=== PATIENT | male | born 2000 | race Caucasian/White ===

== ENCOUNTER 2020-08-12 16:53 | Outpatient (REF) | payer OTHER, SELFPAY | END 2020-08-12 16:54 | disposition home or self-care (01) | LOC: HO.LAB 16:53 | PROVIDERS: Visit Provider Internal Medicine | DX: Z20.822 Contact with and (suspected) exposure to COVID-19 (principal) | CPT/HCPCS: 36415; C9803; U0003; U0005 ==

== ENCOUNTER 2020-12-26 21:32 | Emergency (ER) | payer OTHER, SELFPAY ==
--- NOTE | ~2020-12-26 | XR_ITS ---
EXAMINATION: XR FOOT, RIGHT CLINICAL INFORMATION: Concern for fracture. COMPARISON: No priors. TECHNIQUE: AP, lateral, and oblique views of the right foot. FINDINGS: No fracture. Anterior calcaneal process is intact. Joint spaces are approximated with normal alignment. There is normal midfoot alignment. Bone density is preserved. No lytic or blastic osseous lesions. There is prominent soft tissue swelling in the dorsal medial mid foot. No underlying fracture. No soft tissue gas. No soft tissue calcification. No ankle joint effusion. No radiopaque foreign body. XR/XR foot RT 2V IMPRESSION: Right foot: Dorsal medial midfoot soft tissue swelling without underlying fracture. No joint effusion. No soft tissue gas. No radiopaque foreign body.
[2020-12-26 21:38] VITALS: BP 140/75; PULSE 92; RESP 16; TEMP 36.6; O2SAT 96; BMI 34.3
--- NOTE | 2020-12-26 22:31 | ED_ITS ---
HPI - Extremity Injury (Lower) General Chief Complaint: Extremity Injury, Lower Stated Complaint: foot inj Time Seen by Provider: 12/26/20 22:31 Source: patient Mode of arrival: ambulatory Limitations: no limitations History of Present Illness HPI Narrative: was working in his car and small ranch less than 5 lb fell onto the dorsum of the foot. complaint: foot injury Onset (ago): minute(s) Injury: Right: foot Type of Injury: blunt Place: home Severity: mild Exacerbating factors: palpation Context: direct blow Other symptoms: none Treatments prior to arrival: cold therapy Related Data Previous Rx's Medication Instructions Recorded divalproex 500 mg tablet,delayed 500 mg PO Q12H #180 tab 11/18/20 release fluoxetine 40 mg capsule 40 mg PO DAILY #90 cap 11/18/20 omeprazole 20 mg capsule,delayed 20 mg PO DAILY #30 cap 11/18/20 release Allergies Allergy/AdvReac Type Severity Reaction Status Date / Time No Known Allergies Allergy Verified 04/04/20 08:48 [No Known Allergies*] Review of Systems Review of Systems: Constitutional: No Weight loss, No Fever, No Chills, No Night Sweats, No Fatigue, No Malaise ENT/Mouth: No Hearing loss, No Ear Pain, No Nasal Congestion, No Sinus Pain, No Hoarseness, No sore throat, No Rhinorrhea, No Swallowing Difficulty Eyes: No Eye Pain, No Swelling, No Redness, No Foreign Body, No Discharge, No Vi chastity Changes Cardiovascular: No Chest Pain, No SOB, No Dyspnea on Exertion, No Orthopnea, No Edema, No Palpitations Respiratory: No Cough, No Sputum, No Wheezing, No Smoke Exposure, No Dyspnea Gastrointestinal: No Nausea, No Vomiting, No Diarrhea, No Constipation, No abdominal Pain, No Hematochezia, No Melena Musculoskeletal: No joint pain, No Myalgias, No Joint Swelling , as noted per HPI Skin: No Skin Lesions, No rash Neuro: No Weakness, No Numbness, No Paresthesias, No Loss of Consciousness, No Dizziness, No Headache Psych: No Social Issues Heme/Lymph: No Bruising, No Bleeding,No Lymphadenopathy Endocrine: No Polyuria, No Polydipsia, No Temperature Intolerance Yes all other systems are reviewed and are negative [facility] Past Medical History Medical History (Updated 12/26/20 @ 22:33 by Tejinder Adams NP) Anger Depression GERD (gastroesophageal reflux disease) Surgical History (Updated 04/04/20 @ 08:48 by SOHAM Hicks) No pertinent past surgical history Family History Family History (Updated 04/04/20 @ 08:50 by SOHAM Hicks) Father No problems noted. Mother No problems noted. Social History Social History (Updated 05/04/20 @ 16:47 by SOHAM Marquez) Alcohol intake: unknown Patient Tobacco Use Status: Tobacco use Unknown Use of substances other than those prescribed or required for medical reasons: Unknown Physical Exam Vital Signs: Vital Signs: Last Vital Signs Temp 97.9 F 12/26/20 21:38 Pulse 92 12/26/20 21:38 Resp 16 12/26/20 21:38 BP 140/75 H 12/26/20 21:38 Pulse Ox 96 12/26/20 21:38 Body Mass Index 34.3 reviewed Const: General: cooperative and healthy appearing; No acute distress or intoxicated appearing Nutritional Appearance: average body habitus Orientation/consciousness: patient oriented x3 Resp: Effort & Inspection: normal respiratory effort Cardio: Jugular venous distension: no JVD : General: Yes no CVA tenderness Back/Spine/Pelvis: Back: no CVA tenderness Skin: General skin exam: no rashes or lesions noted Neuro: General: patient oriented x3 Extrem: General: Yes normal to inspection Ankle/foot/toe images: 1. slightly swelling with mild ecchymosis. Slight tender to palpation. Otherwise full range of motion, pulses within normal limits, cap refill within normal limits. MDM - Extremity Injury (Lower) Medical Records Attestation: I reviewed the patient's medical records. Imaging Data Foot x-ray: Radiologist's impression: [address] [id number] ReportSigned Patient: Ziggy Lakhani#: [id number]: 09/02Acct:[id number]/Sex: 20 / MADM Date: 12/26/20Loc: HO.EDAttending Dr: Ordering Physician: Generic ED Physician Date of Service: 12/26/20 Procedure(s): XR foot RT 2V Accession Number(s): [id number] cc: Generic ED Physician~ EXAMINATION: XR FOOT, RIGHT CLINICAL INFORMATION: Concern for fracture. COMPARISON: No priors. TECHNIQUE: AP, lateral, and oblique views of the right foot. FINDINGS: No fracture. Anterior calcaneal process is intact. Joint spaces are approximated with normal alignment. There is normal midfoot alignment. Bone density is preserved. No lytic or blastic osseous lesions. There is prominent soft tissue swelling in the dorsal medial mid foot. No underlying fracture. No soft tissue gas. No soft tissue calcification. No ankle joint effusion. No radiopaque foreign body. XR/XR foot RT 2V IMPRESSION: Right foot: Dorsal medial midfoot soft tissue swelling without underlying fracture. No joint effusion. No soft tissue gas. No radiopaque foreign body. Dictated By:Neena Wagner MDSigned By:<Electronically signed by Neena Wagner MD in [place]>12/26/202206 DD/ 48TD/TT: Underwriting Clerk: Discharge Plan Discharge Clinical Impression: Contusion of foot Qualifiers: Encounter type: initial encounter Laterality: right Qualified Code(s): S90.31XA - Contusion of right foot, initial encounter Patient Disposition: Home, Self-Care Instructions: Foot Contusion (ED) Additional Instructions: rest, ice, compress, elevate x-ray did not show any evidence of fracture Supportive cares discussed Return if any concerns or worsening symptoms otherwise follow-up as instructed Thank you Prescriptions: No Action divalproex 500 mg tablet,delayed release (DR/EC) 500 mg PO Q12H Qty: 180 RF: 0 fluoxetine 40 mg capsule 40 mg PO DAILY Qty: 90 RF: 0 omeprazole 20 mg capsule,delayed release(DR/EC) 20 mg PO DAILY Qty: 30 RF: 0 Referrals: ED Physician,Generic [Physician] - 1 week
== END 2020-12-26 23:05 | disposition home or self-care (01) ==
LOC: HO.ED 22:46
PROVIDERS: Emergency Provider Internal Medicine
DX: S90.31XA Contusion of right foot, initial encounter (principal); W20.8XXA Other cause of strike by thrown, projected or falling object, initial encounter; Y93.89 Activity, other specified; Y92.9 Unspecified place or not applicable; Y99.9 Unspecified external cause status
CPT/HCPCS: 73620; 99283; 99284

== ENCOUNTER 2021-02-19 16:30 | Emergency (ER) | payer OTHER, SELFPAY ==
--- NOTE | ~2021-02-19 | XR_ITS ---
EXAMINATION: XR LUMBOSACRAL SPINE CLINICAL INFORMATION: Back pain COMPARISON: None TECHNIQUE: 4 views of lumbar spine FINDINGS: The vertebral bodies and posterior elements are normal. The disc spaces are preserved and the vertebral alignment is normal. The paraspinal soft tissues are normal. XR/XR lumbar spine 2-3V IMPRESSION: Unremarkable examination.
[2021-02-19 16:43] VITALS: PULSE 80; RESP 18; TEMP 36.6; O2SAT 98; BMI 34.9
[2021-02-19 17:07] LABS: MANUAL DIFF FLAG NO
[2021-02-19 17:32] LABS: Anion Gap 12 (12-20); Blood Urea Nitrogen 14 mg/dL (9-16); Calcium 9.9 mg/dL (8.4-10.2); Carbon Dioxide 27 mmol/L (22-29); Chloride 104 mmol/L (96-108); Estimated Glomerular Filt Rate > 60; Glucose Random 69 mg/dL (60-115); Potassium 4.1 mmol/L (3.3-5.1); Sodium 139 mmol/L (135-145)
[2021-02-19 17:36] LABS: Basophils Percent Auto 0.1 % (0-2); Eosinophils Absolute Auto 0.2 X10*3/uL (0.0-0.4); Eosinophils Percent Auto 2.7 % (0-4); Hematocrit 40.6 % (42-52); Hemoglobin 13.1 g/dl (14.0-18.0); Imm Gran Abs Auto 0.02 X10*3/uL (0.00-0.03); Imm Gran Pct Auto 0.3 % (0.0-0.4); Lymphocytes Absolute Auto 2.1 X10*3/uL (1.2-4.9); Lymphocytes Percent Auto 29.5 % (20-40); Mean Corpuscular HGB Conc 32.3 g/dl (31.0-36.0); Mean Corpuscular Hemoglobin 27.3 pg (27.0-33.0); Mean Corpuscular Volume 84.6 fL (80-98); Mean Platelet Volume 11.8 fL (9.4-12.4); Monocytes Absolute Auto 0.4 X10*3/uL (0.1-1.2); Monocytes Percent Auto 5.3 % (2-11); Neutrophils Absolute Auto 4.3 X10*3/uL (2.0-8.3); Neutrophils Percent Auto 62.1 % (45-73); Platelet Count 232 X10*3/uL (160-400); Red Cell Distribution Width 12.6 % (11.0-16.0)
[2021-02-19 20:53] VITALS: BP 126/81; PULSE 71; RESP 16; TEMP 36.4; O2SAT 99
--- NOTE | 2021-02-19 21:43 | ED.BACK ---
HPI - Back Pain/Injury General Chief Complaint: Headache Stated Complaint: lower back pain Time Seen by Provider: 02/19/21 21:43 Source: patient Mode of arrival: ambulatory Limitations: no limitations History of Present Illness HPI Narrative: patient with lumbar pain after lifting, this afternoon patient had pain. Has not been seen by a doctor, no dysuria no hematuria. 2 weeks ago patient had a headache that made him nauseated. MD elicited complaint: back pain Pertinent past history: prior back pain Onset (ago): hour(s) Timing: intermittent Severity: mild Location: lumbar spine Exacerbating factors: lifting Context: while lifting Associated symptoms: denies other symptoms Related Data Previous Rx's Medication Instructions Recorded divalproex 500 mg tablet,delayed 500 mg PO Q12H #180 tab 11/18/20 release fluoxetine 40 mg capsule 40 mg PO DAILY #90 cap 11/18/20 omeprazole 20 mg capsule,delayed 20 mg PO DAILY #30 cap 11/18/20 release cyclobenzaprine 10 mg tablet 10 mg PO TID #10 tab 02/19/21 naproxen 500 mg tablet (Naprosyn) 500 mg PO BID #20 tab 02/19/21 Allergies Allergy/AdvReac Type Severity Reaction Status Date / Time No Known Allergies Allergy Verified 04/04/20 08:48 [No Known Allergies*] Review of Systems Constitutional: Constitutional: Reports no additional constitutional complaints Eyes: Eyes: Reports no additional eye complaints ENT: Denies dizziness Cardiovascular: Cardiovascular: Reports no additional cardiovascular complaints Respiratory: Respiratory: Reports as per HPI Gastrointestinal: Gastrointestinal: Reports no additional gastrointestinal complaints Musculoskeletal: Musculoskeletal: Reports no additional musculoskeletal complaints Integumentary/Breasts: Skin/Breast: Denies rash Neurologic: Reports system reviewed and no additional complaints, except as documented, Denies dizziness and Denies Sensory deficit (Neuro) Psychiatric: Psychiatric: Denies anxiety PMFSH Past Medical History Medical History Anger Depression GERD (gastroesophageal reflux disease) Surgical History No pertinent past surgical history Family History Family History Father No problems noted. Mother No problems noted. Social History Social History Alcohol intake: never Patient Tobacco Use Status: Never used Tobacco Use of substances other than those prescribed or required for medical reasons: No Advance Directives: Yes Advance Directives Information Provided: Yes Advance Directives on File: No Physical Exam Vital Signs: Vital Signs: Last Vital Signs Temp 98.2 F 02/19/21 22:35 Pulse 57 02/19/21 22:35 Resp 16 02/19/21 22:35 BP 120/77 02/19/21 22:35 Pulse Ox 98 02/19/21 22:35 Body Mass Index 34.9 Const: General: healthy appearing Nutritional Appearance: obese Orientation/consciousness: oriented to person and patient oriented x3 Limitations: no limitations HENMT: Head: Yes normal to inspection Ears: external ears normal General nose exam: Normal external nose present Mouth: Normal oral and palatal mucosa present and oropharynx normal Throat: Yes posterior oropharynx normal Eyes: General: appearance normal, both eyes and all related structures Neck: Other: supple Neck: Yes normal visual inspection Chest: Chest palpation & inspection: normal inspection of the chest Resp: Auscultation: clear to auscultation bilaterally Cardio: Jugular venous distension: no JVD Rate: regular rate Rhythm: regular rhythm Heart sounds: S1 normal heart sound present and S2 normal heart sound present GI: Inspection: Yes normal to inspection Palpation (GI): Soft to palpation, nontender and No hepatosplenomegaly present Auscultation: normal bowel sounds Back/Spine/Pelvis: Other: mild SI joint tenderness FROM Skin: General skin exam: no rashes or lesions noted Neuro: General: oriented to person and patient oriented x3 Cranial nerves: Yes CN's II-XII intact bilaterally Motor exam (neuro): 5/5 motor strength present throughout Sensory Exam: No Sensory deficit (Neuro) Extrem: General: Yes normal to inspection Psych: Appearance: grossly normal Course Reevaluation(s) Reevaluation #1: patient with lumbar pain and radiculopathy improved with medication will dc on NSAIDs and flexeril Time: 23:17 MDM - Back Pain/Injury Lab Data Result diagrams: 02/19/21 17:00 02/19/21 17:00 Labs: Lab Results 02/19/21 02/19/21 Range/Units 17:00 17:00 WBC 7.0 (4.8-10.8) X10*3/uL RBC 4.80 (4.60-5.80) X10*6/uL Hgb 13.1 L (14.0-18.0) g/dl Hct 40.6 L (42-52) % MCV 84.6 (80-98) fL MCH 27.3 (27.0-33.0) pg MCHC 32.3 (31.0-36.0) g/dl RDW 12.6 (11.0-16.0) % Plt Count 232 (160-400) X10*3/uL MPV 11.8 (9.4-12.4) fL Immature Gran % (Auto) 0.3 (0.0-0.4) % Neut % (Auto) 62.1 (45-73) % Lymph % (Auto) 29.5 (20-40) % [place] % (Auto) 5.3 (2-11) % Eos % (Auto) 2.7 (0-4) % Baso % (Auto) 0.1 (0-2) % Lymph # (Auto) 2.1 (1.2-4.9) X10*3/uL [place] # (Auto) 0.4 (0.1-1.2) X10*3/uL Eos # (Auto) 0.2 (0.0-0.4) X10*3/uL Baso # (Auto) 0.0 (0.0-0.2) X10*3/uL Abs Immat Gran (auto) 0.02 (0.00-0.03) X10*3/uL Absolute Neuts (auto) 4.3 (2.0-8.3) X10*3/uL Absolute Nucleated RBC 0.000 (0.0-0.012) X10*3/uL Nucleated RBC % (auto) 0.0 (0.0-0.2) /100WBC Sodium 139 (135-145) mmol/L Potassium 4.1 (3.3-5.1) mmol/L Chloride 104 (96-108) mmol/L Carbon Dioxide 27 (22-29) mmol/L Anion Gap 12 (12-20) BUN 14 (9-16) mg/dL Creatinine 0.88 (0.5-1.4) mg/dL Estim Creat Clear Calc 189.0 Estimated GFR > 60 Random Glucose 69 (60-115) mg/dL Calcium 9.9 (8.4-10.2) mg/dL Imaging Data lumbar xray: Radiologist's impression: IMPRESSION: Unremarkable examination. Discharge Plan Discharge Clinical Impression: Lumbar back pain Patient Disposition: Home, Self-Care Instructions: Acute Low Back Pain (ED) Prescriptions: New cyclobenzaprine 10 mg tablet 10 mg PO TID Qty: 10 RF: 0 naproxen [Naprosyn] 500 mg tablet 500 mg PO BID Qty: 20 RF: 0 No Action divalproex 500 mg tablet,delayed release (DR/EC) 500 mg PO Q12H Qty: 180 RF: 0 fluoxetine 40 mg capsule 40 mg PO DAILY Qty: 90 RF: 0 omeprazole 20 mg capsule,delayed release(DR/EC) 20 mg PO DAILY Qty: 30 RF: 0 Referrals: Physician,Unknown [Primary Care Provider] - 5 days
[2021-02-19 22:00] VITALS: BP 159/91; PULSE 70; RESP 16; O2SAT 100
[2021-02-19] MEDS: Cyclobenzaprine HCl 10 MG TABLET PO (22:02)
[2021-02-19] MEDS: Ketorolac Tromethamine 60 MG/2 ML VIAL IM (22:02)
[2021-02-19 22:35] VITALS: BP 120/77; PULSE 57; RESP 16; TEMP 36.8; O2SAT 98
[2021-02-19 23:02] VITALS: BP 134/72; PULSE 70; RESP 16
== END 2021-02-19 23:30 | disposition home or self-care (01) ==
PROVIDERS: Emergency Provider Emergency Medicine
DX: M54.5 Low back pain (principal)
CPT/HCPCS: 36415; 72100; 80048; 85025; 96372; 99284; J1885

== ENCOUNTER 2021-06-18 13:03 | Outpatient (REF) | payer OTHER, SELFPAY ==
[2021-06-18 15:19] LABS: COVID-19 Test Negative (Negative)
== END 2021-06-18 13:04 | disposition home or self-care (01) ==
LOC: HO.LAB 13:03
PROVIDERS: Visit Provider Internal Medicine
DX: Z20.822 Contact with and (suspected) exposure to COVID-19 (principal)
CPT/HCPCS: 36415; 87635; C9803

== ENCOUNTER 2021-07-27 12:10 | Emergency (ER) | payer OTHER, SELFPAY ==
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
[2021-07-27 13:06] VITALS: BP 142/87; PULSE 100; RESP 19; TEMP 36.6; O2SAT 99; BMI 36.2
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
== END 2021-07-27 14:12 | disposition home or self-care (01) ==
PROVIDERS: Emergency Provider Emergency Medicine
DX: S29.011A Strain of muscle and tendon of front wall of thorax, initial encounter (principal); S39.012A Strain of muscle, fascia and tendon of lower back, initial encounter; V43.52XA Car driver injured in collision with other type car in traffic accident, initial encounter; Y93.9 Activity, unspecified; Y92.410 Unspecified street and highway as the place of occurrence of the external cause; Y99.9 Unspecified external cause status; Z79.899 Other long term (current) drug therapy
CPT/HCPCS: 71046; 99283

== ENCOUNTER 2021-09-11 10:56 | Emergency (ER) | payer OTHER, SELFPAY ==
--- NOTE | ~2021-09-11 | CT_ITS ---
EXAMINATION: CT ABDOMEN AND PELVIS WITHOUT CONTRAST CLINICAL INFORMATION: Right lower quadrant pain COMPARISON: None TECHNIQUE: Multidetector volumetric imaging was performed from the superior aspect of the liver through the pubic symphysis. Sagittal and coronal reformatted images were obtained on the technologist's workstation. This CT examination was performed using dose optimization techniques as appropriate, variously including the following: *Automated exposure control *Adjustment of mA and/or kV according to patient size (this includes techniques or standardized protocols for targeted exams where dose is matched to indication/reason for exam; i.e. extremities or head) *Use of iterative reconstruction technique DLP: 1348 mGy-cm FINDINGS: LUNG BASES: The visualized lung bases are unremarkable. LIVER, GALLBLADDER, AND BILIARY TREE: The liver is normal in size, shape, and attenuation. No focal hepatic lesion or biliary ductal dilatation is present. The gallbladder is unremarkable with no evidence of radiopaque gallstones, gallbladder wall thickening, or obvious pericholecystic inflammatory changes. PANCREAS: Unremarkable. SPLEEN: Unremarkable. ADRENAL GLANDS: Unremarkable. KIDNEYS AND URETERS: The kidneys are normal in size, shape, and attenuation. No hydronephrosis, hydroureter, or calculi seen. No perinephric stranding. BLADDER: Unremarkable. GASTROINTESTINAL TRACT: The small and large bowel are unremarkable. The appendix is unremarkable. ABDOMINAL WALL: No significant hernia is appreciated. LYMPH NODES: There are numerous mesenteric lymph nodes with diffuse mesenteric haziness suggestive of mesenteric adenitis. VASCULAR: Unremarkable. PELVIC VISCERA: Unremarkable. OSSEOUS STRUCTURES: Unremarkable. CT/CT abdomen pelvis wo con IMPRESSION: Central mesenteric adenitis in midabdomen of unknown etiology. Gallbladder, kidneys and appendix are unremarkable. Rest of the abdomen and pelvic CTs unremarkable. Fleischner guidelines were followed.
[2021-09-11 11:32] VITALS: BP 126/90; BP 137/77; PULSE 110; PULSE 116; RESP 17; TEMP 36.8; O2SAT 99; BMI 34.3
--- NOTE | 2021-09-11 12:21 | ED_ITS ---
HPI - Nausea/Vomiting/Diarrhea General Chief complaint: Nausea/Vomiting/Diarrhea Stated complaint: VOMITING SINCE 7AM Time Seen by Provider: 09/11/21 12:18 Source: patient, family (Mother) and EMS Mode of arrival: EMS Limitations: no limitations History of Present Illness HPI Narrative: 20 years old male came in for evaluation of abdominal pain and nausea, vomiting, and diarrhea. Symptoms all started 07:00 o'clock in the morning went to the bathroom had nonbloody watery diarrhea followed by upper abdominal pain the patient started to have nonbloody vomitus, patient ate steak sandwich last night at a restauran t, no other sick contact, no recent travel, no recent use of antibiotic, abdominal pain is constant wean and wax with vomiting and diarrhea felt like cramps, no pain aggravating or relieving factors. Patient declined any surgical history. No previous similar symptoms in the past. Patient declined past medical history. Related Data Previous Rx's Medication Instructions Recorded divalproex 250 mg tablet,delayed 250 mg PO Q12H #60 tab 09/02/21 release fluoxetine 40 mg capsule 40 mg PO DAILY #90 cap 09/02/21 ondansetron HCl 4 mg tablet 4 mg PO Q8H PRN 3 Days #10 tab 09/11/21 Allergies Allergy/AdvReac Type Severity Reaction Status Date / Time No Known Allergies Allergy Verified 09/02/21 09:26 [No Known Allergies*] Review of Systems Review of Systems: all other systems are reviewed and are negative Constitutional: Reports as per HPI and Reports no additional constitutional complaints Eyes: Reports as per HPI and Reports no additional eye complaints Reports system reviewed and no additional complaints, except as documented Cardiovascular: Reports as per HPI and Reports no additional cardiovascular complaints Respiratory: Reports as per HPI and Reports no additional respiratory complaints Gastrointestinal: Reports as per HPI and Reports no additional gastrointestinal complaints Genitourinary: Reports no additional female genitourinary complaints Musculoskeletal: Reports no additional musculoskeletal complaints Skin/Breast: Reports system reviewed and no additional complaints, except as docu Psychiatric: Reports no additional psychiatric complaints Endocrine: Reports no additional endocrine complaints Hematologic/Lymphatic: Reports no additional hematologic/lymphatic complaints Allergic/Immunologic: Reports no additional allergic/immunologic complaints Reports system reviewed and no additional complaints, except as documented and Reports Abnormal speech present [facility] Past Medical History Medical History Anger Depression GERD (gastroesophageal reflux disease) Surgical History No pertinent past surgical history Family History Family History Father No problems noted. Mother No problems noted. 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 Blood pressure normal. Heart rate elevated. Respiration rate normal. Temperature normal. Oxygen saturation normal. Appearance: Alert. Oriented X3. No acute distress. Head: Normal external exam. Normocephalic. Atraumatic. No Norton signs noted. No raccoon eyes noted Eyes: PERRLA. EOMI. Conjunctiva and sclera normal. Eyelids normal. ENT: TM's Normal. Pharynx normal. Uvula midline. Moist mucous membranes. No trismus noted. No drooling noted. No muffled voice noted. Neck: Normal inspection. Neck supple. FROM. No adenopathy. Thyroid Normal. No meningeal signs. No neck mass noted. CVS: Normal heart rate and rhythm. Heart sound normal. No murmurs noted. Pulses normal throughout. Respiratory: No respiratory distress. Painless inspiration. Breath sounds normal. No wheezes/rales/rhonchi noted. Chest nontender. No accessory muscle usage noted or decreased air movement noted. Abdomen: Soft, obese, diffuse abdominal tenderness with no guarding, no rebound tenderness, Bowel sounds normal in all 4 quadrants. No distention noted. No organomegaly noted. No visible injury noted. Back: No CVA tenderness. Full range of motion noted. Skin: Skin warm and dry. Normal skin color. Normal skin turgor. No rashes/lesions/lacerations noted. Extremities: No lower extremity edema. Extremities exhibit normal range of mot ion. Extremities nontender. Neuro: Oriented X 3. Cranial nerve exam: II-XII are grossly intact No motor deficit. No sensory deficit. Reflexes normal. Course Course Course Narrative: Assessment and plan. 20-year-old male came in with abdominal pain, nausea vomiting with diarrhea after eating a steak sandwich last night. CT is unremarkable for intra-abdominal pathology except diffuse mesenteric adenitis. Patient's symptoms has improved after IV fluids, able to tolerate p.o. intake with no nausea or vomiting. Reevaluation(s) Reevaluation #1: Patient was ready to be discharged patient started to have abdominal pain and had 1 time vomiting in the ED patient was given pain medication and antinausea medication then will discharge. Time: 15:47 MDM - Nausea/Vomiting/Diarrhea Lab Data Attestation: I reviewed the patient's lab results. Result diagrams: 09/11/21 12:38 09/11/21 12:38 Labs: Lab Results 09/11/21 09/11/21 09/11/21 Range/Units 12:38 12:38 14:01 WBC 7.4 (4.8-10.8) X10*3/uL RBC 5.39 (4.60-5.80) X10*6/uL Hgb 14.4 (14.0-18.0) g/dl Hct 45.3 (42.0-52.0) % MCV 84.0 (80.0-98.0) fL MCH 26.7 L (27.0-33.0) pg MCHC 31.8 (31.0-36.0) g/dl RDW 13.1 (11.0-16.0) % Plt Count 199 (160-400) X10*3/uL MPV 11.1 (9.4-12.4) fL Immature Gran % (Auto) 0.1 (0.0-0.4) % Neut % (Auto) 90.1 H (45-73) % Lymph % (Auto) 3.2 L (20-40) % Hubbard % (Auto) 5.8 (2-11) % Eos % (Auto) 0.7 (0-4) % Baso % (Auto) 0.1 (0-2) % Lymph # (Auto) 0.2 L (1.2-4.9) X10*3/uL Hubbard # (Auto) 0.4 (0.1-1.2) X10*3/uL Eos # (Auto) 0.1 (0.0-0.4) X10*3/uL Baso # (Auto) 0.0 (0.0-0.2) X10*3/uL Abs Immat Gran (auto) 0.01 (0.00-0.03) X10*3/uL Absolute Neuts (auto) 6.7 (2.0-8.3) x10*3/uL Absolute Nucleated RBC 0.000 (0.0-0.012) X10*3/uL Nucleated RBC % (auto) 0.0 (0.0-0.2) /100WBC Smear Tech's Comments VERIFIED Sodium 139 (135-145) mmol/L Potassium 4.4 (3.3-5.1) mmol/L Chloride 104 (96-108) mmol/L Carbon Dioxide 24 (22-29) mmol/L Anion Gap 15 (12-20) BUN 14 (9-16) mg/dL Creatinine 0.95 (0.5-1.4) mg/dL Estim Creat Clear Calc 173.5 Estimated GFR > 60 Random Glucose 119 H D (60-115) mg/dL Calcium 10.0 (8.4-10.2) mg/dL Total Bilirubin 0.6 (0.0-1.0) mg/dL Direct Bilirubin 0.3 (0.0-0.5) mg/dL AST 16 (5-37) U/L ALT 19 (0-40) U/L Alkaline Phosphatase 72 (39-117) U/L Total Protein 8.1 H (6.5-8.0) g/dL Albumin 4.5 (3.5-5.0) g/dL Lipase 12 (8-78) U/L Urine Color YELLOW Urine Appearance CLEAR Urine pH 7.5 (5.0-8.0) Ur Specific Naselle 1.015 (1.005-1.025) Urine Protein 1+ H (NEG-TRACE) MG/DL Urine Glucose (UA) NEG (NEG) MG/DL Urine Ketones 15 (NEG) MG/DL Urine Blood NEG (NEG) Urine Nitrite NEG (NEG) Ur Leukocyte Esterase NEG (NEG) Urine RBC 0 (0) /HPF Urine WBC 0-2 (0-4) /HPF Ur Squamous Epith Cells 1+ /LPF Urine Bacteria NONE /LPF Urine Mucus 1+ /LPF Imaging Data CT abdomen and pelvis: Attestation: I personally reviewed and interpreted this imaging study as follows: Radiologist's impression: Central mesenteric adenitis in midabdomen of unknown etiology. ?Gallbladder, kidneys and appendix are unremarkable. ?Rest of the abdomen and pelvic CTs unremarkable. ? Discharge Plan Discharge Clinical Impression: Gastroenteritis Patient Disposition: Home, Self-Care Instructions: Gastroenteritis (ED) Prescriptions: New ondansetron HCl 4 mg tablet 4 mg PO Q8H PRN (Reason: nausea and vomiting) 3 Days Qty: 10 0RF No Action fluoxetine 40 mg capsule 40 mg PO DAILY Qty: 90 0RF divalproex 250 mg tablet,delayed release (DR/EC) 250 mg PO Q12H Qty: 60 0RF
[2021-09-11] MEDS: ondansetron HCL 4 MG/2 ML VIAL IVPUSH ×2 (12:40→16:06)
[2021-09-11] MEDS: 0.9 % Sodium Chloride 1,000 ML 999 ML IV (12:40)
[2021-09-11] MEDS: Famotidine/PF 20 MG/2 ML VIAL IVPUSH (12:40)
[2021-09-11] MEDS: Magnesium Hydrox/Alum Hydrox 30 ML ORAL.SUSP PO (12:40)
[2021-09-11 12:45] VITALS: BP 122/81; PULSE 96; RESP 18; TEMP 36.8; O2SAT 100
--- NOTE | 2021-09-11 12:46 | PC.NURSE ---
pt a&ox3, vss, laboratory monitor applied - NSR, 20G IV placed R AC, labs drawn, flds started, medicated per provider order, will continue to monitor.
[2021-09-11 12:48] LABS: Basophils Percent Auto 0.1 % (0-2); Eosinophils Absolute Auto 0.1 X10*3/uL (0.0-0.4); Eosinophils Percent Auto 0.7 % (0-4); Hematocrit 45.3 % (42.0-52.0); Hemoglobin 14.4 g/dl (14.0-18.0); Imm Gran Abs Auto 0.01 X10*3/uL (0.00-0.03); Imm Gran Pct Auto 0.1 % (0.0-0.4); Lymphocytes Absolute Auto 0.2 X10*3/uL (1.2-4.9); Lymphocytes Percent Auto 3.2 % (20-40); MANUAL DIFF FLAG SCAN; Mean Corpuscular HGB Conc 31.8 g/dl (31.0-36.0); Mean Corpuscular Hemoglobin 26.7 pg (27.0-33.0); Mean Platelet Volume 11.1 fL (9.4-12.4); Monocytes Absolute Auto 0.4 X10*3/uL (0.1-1.2); Monocytes Percent Auto 5.8 % (2-11); Neutrophils Absolute Auto 6.7 x10*3/uL (2.0-8.3); Neutrophils Percent Auto 90.1 % (45-73); Platelet Count 199 X10*3/uL (160-400); Red Blood Count 5.39 X10*6/uL (4.60-5.80); Red Cell Distribution Width 13.1 % (11.0-16.0); SCAN SMEAR FLAG 1; White Blood Count 7.4 X10*3/uL (4.8-10.8)
[2021-09-11 13:01] LABS: Alanine Aminotransferase 19 U/L (0-40); Albumin Level 4.5 g/dL (3.5-5.0); Alkaline Phosphatase 72 U/L (39-117); Anion Gap 15 (12-20); Aspartate Amino Transferase 16 U/L (5-37); Bilirubin Direct 0.3 mg/dL (0.0-0.5); Bilirubin Total 0.6 mg/dL (0.0-1.0); Blood Urea Nitrogen 14 mg/dL (9-16); Carbon Dioxide 24 mmol/L (22-29); Chloride 104 mmol/L (96-108); Creatinine Clr Calc Pharmacy 173.5; Estimated Glomerular Filt Rate > 60; Glucose Random 119 mg/dL (60-115); Lipase 12 U/L (8-78); Potassium 4.4 mmol/L (3.3-5.1); Sodium 139 mmol/L (135-145); Total Protein 8.1 g/dL (6.5-8.0)
[2021-09-11 13:15] VITALS: BP 122/81; PULSE 101; RESP 17; TEMP 37.1; O2SAT 99
--- NOTE | 2021-09-11 13:16 | PC.NURSE ---
patient a&ox3, vss, desk monitor sinus tach, pt c/o 03/12 back pain, ivf continue to run slowly, will continue to monitor
[2021-09-11 13:26] LABS: SLIDE REVIEW VERIFIED
[2021-09-11 14:04] VITALS: BP 134/69; PULSE 108; RESP 18; O2SAT 99
[2021-09-11 14:09] LABS: Appearance Urine CLEAR; Color Urine YELLOW; Glucose Urine UA NEG (NEG); Leukocyte Esterase Urine NEG (NEG); Nitrite Urine NEG (NEG); PH 7.5 (5.0-8.0); Specific Gravity - Urine 1.015 (1.005-1.025); UACC Culture Trigger NO; Urine Blood NEG (NEG); Urine Ketones 15 MG/DL (NEG); Urine Protein 1+ MG/DL (NEG-TRACE)
[2021-09-11 14:31] LABS: RBC Urine 0 /HPF (0); Squamous Epithelial Cell Urine 1+ /LPF; WBC Urine 0-2 /HPF (0-4)
[2021-09-11 14:32] LABS: Mucus Urine 1+ /LPF
--- NOTE | 2021-09-11 15:00 | PC.NURSE ---
patients ivf continue to run slowly, pt reminded to keep arm straight, family at bedside
[2021-09-11 16:00] VITALS: BP 114/61; PULSE 99; RESP 18; TEMP 37; O2SAT 95
[2021-09-11] MEDS: Morphine Sulfate 2 MG/ML CARTRIDGE IVPUSH (16:06)
[2021-09-11] MEDS: Ketorolac Tromethamine 15 MG/ML VIAL IVPUSH (16:06)
--- NOTE | 2021-09-11 16:11 | PC.NURSE ---
patient a&ox3, family at bedside, pt medicated for 9/10 abd and back pain per order as well as for nausea, vss, will continue to monitor
== END 2021-09-11 17:47 | disposition home or self-care (01) ==
PROVIDERS: Emergency Provider Emergency Medicine
DX: K52.9 Noninfective gastroenteritis and colitis, unspecified (principal); R11.2 Nausea with vomiting, unspecified; K21.9 Gastro-esophageal reflux disease without esophagitis
CPT/HCPCS: 36415; 74176; 80048; 80076; 81001; 83690; 85025; 96361; 96374; 96375; 96376; 99284; J1885; J2270; J2405

== ENCOUNTER 2021-11-25 07:48 | Outpatient (REF) | payer OTHER, SELFPAY ==
[2021-11-25 08:32] LABS: COVID-19 Test Positive (Negative); IDNOW Serial# 16C4AD1C
== END 2021-11-25 07:49 | disposition home or self-care (01) ==
LOC: HO.LAB 07:48
PROVIDERS: Visit Provider Internal Medicine
DX: Z20.822 Contact with and (suspected) exposure to COVID-19 (principal)
CPT/HCPCS: 87635; C9803

== ENCOUNTER 2024-10-07 15:13 | Outpatient (AMB) | payer OTHER, SELFPAY ==
--- NOTE | 2024-10-07 15:17 | MHC.OFFWIV ---
Intake Vital Signs 10/07/24 15:18 Weight 360 lb BP 118/74 Blood Pressure Location Rt brachial Position Sitting Pulse 92 Pulse Source Pulse Oximeter Pulse Oximetry (%) 98 Oxygen Delivery Method Room Air Intake Visit Reasons: EP Pain in groin area Intake Note: Patient here for right testicle pain that started yesterday. Denies any injuries, swelling or redness. Patient Tobacco Use Status: Never used Tobacco Allergies No Known Allergies [No Known Allergies*] Allergy (Verified 10/07/24 15:19) Do you need a note to return to daycare/school/sports/work: No HPI HPI Comments History of Present Illness Details History of Present Illness - The patient is a 24-year-old male presenting with right lateral testicular tenderness with palpation which he rates as a 4/10. - The tenderness is worse with palpation and is not constant. - Reports onset of unusual right testicular pain the previous night. - No visible swelling, redness, warmth noted - Pain is exacerbated by pressure, such as crossing legs or during urination. - Denies fever, rash, abnormal discharge, or changes in urinary habits, no detection of blood in his urine. - Sexual inactivity reported for the last 3 months. - Absence of recent trauma or injury to the area. - He has not done anything to treat the tenderness. - Patient declined space engineer for exam Physical Exam General: Cooperative, healthy appearing, comfortable, no acute distress and well developed Orientation: Patient oriented x3 Limitations: No limitations Head: Normal to inspection Ears: Hearing grossly normal bilaterally Nose: Normal External nose present Face and sinus: Normal facial exam Eyes: Appearance normal, both eyes and all related structures Neck: Normal visual inspection and Yes full ROM Respiratory: Normal respiratory effort and able to speak in complete sentences. : see below Skin: No rashes or lesions noted Neuro: Patient oriented x3 Extremities: Normal to inspection COUNT INCLUDES THE [facility] Medical History Anger Depression GERD (gastroesophageal reflux disease) Surgical History No pertinent past surgical history Family History Father No problems noted. Mother No problems noted. 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 Cognitive needs: No Hearing needs: No Vision needs: Yes (glasses) Review of Systems Const All systems reviewed & are unremarkable except as noted in HPI and below Physical Exam Vital Signs: Last Vital Signs Pulse 92 10/07/24 15:18 BP 118/74 10/07/24 15:18 Pulse Ox 98 10/07/24 15:18 Oxygen Delivery Method Room Air 10/07/24 15:18 Male General Exam: Yes normal external exam Penis: normal penis and uncircumcised Scrotum: scrotum normal, no ecchymosis, not edematous, not erythematous, testes descended bilaterally, no masses and no scrotal swelling Testes: Testes normal, epididymides normal, no blue dot sign, no epidiymal tenderness, no testicular mass, no testicular swelling and testicular tenderness on the right (lateral) Assessment & Plan Assessment & Plan (1) Testicle tenderness: Code(s): N50.819 - Testicular pain, unspecified Plan: UA negative for infection or blood. Although testicular torsion was considered, it is unlikely given the lack of acute symptoms typically associated with torsion, such as severe pain or significant swelling. Patient was advised to monitor his symptoms with instructions to go to the ED with any escalation of symptoms, such as increased swelling or severe pain. In the meanwhile, I messaged his PCP for further workup. Patient was informed and verbally consented to the use of an ambient scribe for clinic note documentation during this visit. Coding Level of Care Code Est Pt Level 3 (02571) Diagnoses Testicle tenderness N50.819
[2024-10-07 15:18] VITALS: BP 118/74; PULSE 92; O2SAT 98
--- OUTSIDE RECORDS SUMMARY | 2024-10-07 18:02 | XMS_ITS | Encounter Summary ---
Author Organization [employer] Address [address] [place] [address] [address] [place] [address] Care Team Providers Care Technology Trainer Name Role Phone Liss Peterson OD Primary Care Provider Encounter Details Date Type Department Care Team (Latest Contact Info) Description 11/20/2018 Abstract [facility] CONVERSIONS Dental, Provider, DDS Social History Tobacco Use Types Packs/Day Years Used Date Smoking Tobacco: Never Assessed Sex and Gender Information Value Date Recorded Sex Assigned at Male 05/02/2022 10:34 AM EDT Legal Sex Male 10:34 AM EDT Gender Identity Male 05/02/2022 10:34 AM EDT Sexual Orientation Straight 05/02/2022 10 :34 AM EDT documented as of this encounter Plan of Treatment Not on file documented as of this encounter Visit Diagnoses Not on filedocumented in this encounter Care Teams Technology Trainer Relationship Specialty Start Date End Date Liss Peterson OD [address] [place] [id number] PCP - General Optometry 02/28/18 07/09/23 documented as of this encounter
--- OUTSIDE RECORDS SUMMARY | 2024-10-07 18:02 | XMS_ITS | Encounter Summary ---
Author Organization [email or web address] Address [address] [place] [address] 7 [place] [address] Care Team Providers Care Meat Packager Name Role Phone Liss Peterson OD Primary Care Provider [phone] Encounter Details Date Type Department Care Team (Latest Contact Info) Description 12/21/2021 Abstract [facility] CONVERSIONS Dental, Provider, DDS Social History [...] on filedocumented in this encounter Care Teams Meat Packager Relationship Specialty Start Date End Date Liss Peterson OD [address] [place] [id number] PCP - General Optometry 02/28/18 07/09/23 documented as of this encounter
--- OUTSIDE RECORDS SUMMARY | 2024-10-07 18:02 | XMS_ITS | Clinical Summary ---
Author Organization [employer] Address [address] [place] [address] [address] [place] [address] Care Team Providers Care Armature Coil Winder Name Role Phone Unavailable Primary Care Provider Unavailabl e Allergies Active Allergy Reactions Criticality Noted Date Comments Penicillins 09/19/2023 Medications divalproex (Depakote) 500 MG EC tablet Take 1 tablet by mouth every 12 (twelve) hours. Active FLUoxetine (PROzac) 40 MG capsule Take 40 mg by mouth in the morning. 04/16/2023 Active Social History Tobacco Use Types Packs/Day Years Used Date Smoking Tobacco: Unknown Tobacco Cessation:Counseling Given: Not Answered Sex and Gender Information Value Date Recorded Sex Assigned at Male 05/02/2022 10:34 AM EDT Legal Sex Male 10:34 AM EDT Gender Identity Male 05/02/2022 10:34 AM EDT Sexual Orientation Straight 05/02/2022 10 :34 AM EDT Last Filed Vital Signs Vital Sign Reading Time Taken Comments Blood Pressure 130/80 12/19/2023 3:27 PM EDT Pulse - - Temperature - - Respiratory Rate - - Oxygen Saturation - - Inhaled Oxygen Concentration - - Weight - - Height - - Body Mass Index - - Plan of Treatment Health Maintenance Due Date Last Done Comments Depression Screening 1998 HIV Screening 1998 SDOH Screening 1998 Alcohol/Substance Use Screening 2010 Family Planning (PISQ) 2013 HPV Vaccines (1 - Male 3-dose series) 2013 Hepatitis C Screening 2016 DTaP/Tdap/Td Vaccines (1 - Tdap) 2017 Hepatitis B Vaccines (1 of 3 - 19+ 3-dose series) 2017 Dental Oral Exam 06/23/2022 12/21/2021, , 03/27/2018 Dental Prophylaxis 06/23/2022 12/21/2021, 1 07/29/2018, 11/20/2018, Additional history exists COVID-19 Vaccine ( season) 2024 05/05/2023, 11/29/2020, 10/30/2020 Influenza Vaccine (#1) 2024 , 09/09/2022, 06/19/2020, Additional history exists Tobacco Screening 01/17/2025 01/18/2024 Dental X-Ray: Bitewings 01/18/2025 01/18/20 24, 12/21/2021, 12/07/2021, Additional history exists Dental X-Ray: Full Mouth 07/26/2026 07/25/2023, 03/04 Zoster Vaccines (1 of 2) 2048 RSV Patients and Patients Aged 60 years or older (1 - 1-dose 75+ series) 2073 HIB Vaccines Aged Out No longer eligi ble based on patient's age to complete this topic Hepatitis A Vaccines Aged Out No long er eligible based on patient's age to complete this topic IPV Vaccines Aged Out No longer eligi ble based on patient's age to complete this topic Meningococcal Vaccine Aged Out No arjun alma rosa eligible based on patient's age to complete this topic Pneumococcal Vaccine: Pediatrics (0 to 5 Years) and At-Risk Patients (6 to 49) Years) Aged Out No longer eligible based on patient's age to complete this topic RSV under 20 months Aged Out No longe r eligible based on patient's age to complete this topic Rotavirus Vaccines Aged Out No longer eligible based on patient's age to complete this topic Procedures Procedure Name Priority Date/Time Associated Diagnosis Comments BITEWING - SINGLE RADIOGRAPHIC IMAGE Routine 01/18/2024 3:00 PM EDT PANORAMIC RADIOGRAPHIC IMAGE Routine 07/25/2023 10:00 AM EST PROPHYLAXIS - ADULT Routine 12/21/2021 1 2:00 AM EDT PERIODIC ORAL EVALUATION - ESTABLISHED PATIENT Routine 12/21/2021 12:00 AM EDT from Last 3 Months or Most Recently Relevant to Health Maintenance Insurance [address] [address] D[facility]AL [facility]
== END 2024-10-07 15:45 | disposition home or self-care (01) ==
PROVIDERS: PCP Internal Medicine; Visit Provider Physician Assistant
DX: N50.819 Testicular pain, unspecified (principal); Z13.9 Encounter for screening, unspecified

== ENCOUNTER → 2024-10-07 15:13 | Outpatient (BNVA) | payer OTHER, SELFPAY | PROVIDERS: PCP Internal Medicine; Visit Provider Physician Assistant | DX: N50.811 Right testicular pain (principal) | CPT/HCPCS: 81003 ==

== ENCOUNTER 2024-11-07 21:56 | Emergency (ER) | payer OTHER, SELFPAY ==
--- NOTE | ~2024-11-07 | XR_ITS ---
CLINICAL HISTORY: chest pain 1 view chest x-ray Comparison: None Findings: There is ill-defined right suprahilar opacity. No pleural effusion. Normal size heart. No acute fracture. IMPRESSION: There could be a developing right suprahilar consolidation. Recommend full inspiration upright two-view chest x-ray. This document has been electronically signed by: Fior Monique MD on 11/07/2024 23:20:57
--- NOTE | ~2024-11-07 | XR_ITS ---
CLINICAL HISTORY: chest pain, additional imaging 2 view chest x-ray Comparison: CR - XR CHEST 1V - 11/07/24 22:33 EDT Findings: No pleural effusion. Normal size heart. No acute fracture. IMPRESSION: Persistent ill-defined right suprahilar lung opacity. This could represent pneumonia. Recommend follow-up to clearing. This document has been electronically signed by: Fior Monique MD on 11/08/2024 02:39:11
--- NOTE | 2024-11-07 21:57 | ECG_ITS ---
Test Reason : cp Blood Pressure : */* mmHG Vent. Rate : 109 BPM Atrial Rate : 109 BPM P-R Int : 138 ms QRS Dur : 90 ms QT Int : 314 ms P-R-T Axes : 43 -1 36 degrees QTcB Int : 422 ms Sinus tachycardia Minimal voltage criteria for LVH, may be normal variant ( R in aVL ) Borderline ECG No previous ECGs available Referred By: Generic ED Physician Electronically Signed By: AMMY AGEE
[2024-11-07 22:04] VITALS: BP 141/84; PULSE 117; RESP 20; TEMP 36.4; O2SAT 96; BMI 43.4
[2024-11-07 22:11] LABS: MANUAL DIFF FLAG NO
[2024-11-07 22:12] VITALS: BP 138/85; PULSE 108; RESP 15; TEMP 36.9; O2SAT 95
[2024-11-07 22:12] LABS: Basophils Percent Auto 0.3 % (0-2); Eosinophils Absolute Auto 0.2 X10*3/uL (0.0-0.4); Eosinophils Percent Auto 1.8 % (0-4); Hematocrit 39.9 % (42.0-52.0); Hemoglobin 13.4 g/dl (14.0-18.0); Imm Gran Abs Auto 0.04 X10*3/uL (0.00-0.03); Imm Gran Pct Auto 0.4 % (0.0-0.4); Lymphocytes Absolute Auto 1.9 X10*3/uL (1.2-4.9); Lymphocytes Percent Auto 16.9 % (20-40); Mean Corpuscular HGB Conc 33.6 g/dl (31.0-36.0); Mean Corpuscular Hemoglobin 26.3 pg (27.0-33.0); Mean Corpuscular Volume 78.2 fL (80.0-98.0); Mean Platelet Volume 10.5 fL (9.4-12.4); Monocytes Absolute Auto 0.8 X10*3/uL (0.1-1.2); Monocytes Percent Auto 7.1 % (2-11); Neutrophils Absolute Auto 8.2 x10*3/uL (2.0-8.3); Neutrophils Percent Auto 73.5 % (45-73); Platelet Count 287 X10*3/uL (160-400); Red Cell Distribution Width 13.2 % (11.0-16.0); White Blood Count 11.1 X10*3/uL (4.8-10.8)
[2024-11-07 22:31] LABS: Alanine Aminotransferase 41 U/L (0-40); Albumin Level 4.5 g/dL (3.5-5.0); Alkaline Phosphatase 76 U/L (39-117); Anion Gap 13 (12-20); Aspartate Amino Transferase 31 U/L (5-37); Bilirubin Total 0.6 mg/dL (0.0-1.0); Blood Urea Nitrogen 13 mg/dL (9-16); Calcium 10.3 mg/dL (8.4-10.2); Carbon Dioxide 24 mmol/L (22-29); Chloride 105 mmol/L (96-108); Creatinine Clr Calc Pharmacy 190.4; Estimated Glomerular Filt Rate > 60; Glucose Random 108 mg/dL (60-115); Potassium 3.8 mmol/L (3.3-5.1); Sodium 138 mmol/L (135-145); Total Protein 8.3 g/dL (6.5-8.0)
[2024-11-07 22:37] LABS: Troponin-I High Sensitivity 11.9 ng/L (<3.5-35.0)
--- NOTE | 2024-11-07 22:46 | ED_ITS ---
HPI - Chest Pain General Chief Complaint: Chest Pain Stated Complaint: CP Time Seen by Provider: 11/07/24 22:23 Source: patient and old records reviewed Mode of arrival: ambulatory Limitations: no limitations History of Present Illness ED Provider: ANAYELI BRICENO narrative: 24 yo male with no PMH was at home and in shower had 2 minutes of L sided chest pain radiating down the L arm felt dizzy, weak, short of breath. He has no symptoms now. No recent travel, procedures, URI symptoms. No known CAD. No risk factors for VTE. No recent URI. He states he feels fine right now. MD complaint: chest pain Onset (ago): day(s) (today 9pm) Timing of current episode: now resolved Prior episodes: No Onset: during rest Pain location: substernal Pain radiation: left arm Severity: mild Quality: aching Relieving factors: nothing Exacerbating factors: nothing Associated symptoms: nausea and dyspnea Treatment prior to arrival: none Related Data Allergies Allergy/AdvReac Type Severity Reaction Status Date / Time No Known Allergies Allergy Verified 11/07/24 22:08 [No Known Allergies*] Review of Systems 2 Review of Systems: Constitutional : No Weight loss, No Fever, No Chills ENT/Mouth : No sore throat, No Rhinorrhea Eyes: No Eye Pain, No Swelling Cardiovascular : pos Chest Pain, pos SOB, no Dyspnea on Exertion, No Orthopnea, No Edema, No Palpitations Respiratory : No Cough, No Sputum Gastrointestinal : pos Nausea, No Vomiting, No Diarrhea, No abdominal Pain, No Hematochezia, No Melena Genitourinary : No Dysuria, No Urinary Frequency Musculoskeletal : No joint pain, No Myalgias, No Joint Swelling Skin : No Skin Lesions, No rash Neuro : No Weakness, No Numbness, No Dizziness, No Headache All other systems reviewed and are negative PMFSH Past Medical History Attestation statement: The following information was validated with the patient. Source: old records reviewed Medical History GERD (gastroesophageal reflux disease) Anger Depression Surgical History No pertinent past surgical history Family History Family History Father No problems noted. Mother No problems noted. 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 Oriented X3. No acute distress. Eyes: Pupils equal, round and reactive to light. ENT: Pharynx normal. Neck: Normal inspection. Neck supple. CVS: Normal heart rate and rhythm. Pulses normal. Respiratory: No respiratory distress. Breath sounds normal. Abdomen: Soft and nontender. Skin: Skin warm and dry. Normal skin color. Normal skin turgor. Extremities: No lower extremity edema. No calf ttp Neuro: Oriented X 3. No motor deficit. No sensory deficit. CN2-12 intact Course Reevaluation(s) Reevaluation #1: I Sharda Earl PA-C have accepted care of the patient at signed out pending 3rd troponin and the read on the two-view chest. When the patient had chest discomfort it was transient, while in the shower. He has not had pain since. When asked of the patient has a anxiety, the patient denies, however his mother who is at bedside, continues to shake her head yes. I do wonder if he was having a panic attack in the shower. He states he does get stressed out over work. I have independently reviewed the following tests: Chest x-ray:Findings: No pleural effusion. Normal size heart. No acute fracture. IMPRESSION: Persistent ill-defined right suprahilar lung opacity. This could represent pneumonia. Recommend follow-up to clearing. Sending with instructions to have a repeat chest x-ray within a week. I did verify with the patient that he has not had any cough or cold symptoms no fevers. Third troponin 21.3, the 2nd was 18.6, this would be considered flat, overall, all 3 troponins are within the designated range. He has no risk factors for coronary artery disease, his pain was highly atypical. Procedures Procedure Narrative Procedure Narrative: limited bedside ECHO parasternal, subxiphoid, apical no effusion and no GWMA noted Medical Decision Making Medical Decision Making MDM Narrative: 24 yo male with no sig PMH here with c/o chest pain staring at 9pm that lasted two minutes he has no risk factors for ACS or VTE but given tachycardia and symptoms he will need labs EKG, CXR, troponin x 2. He has distal pulses intact BP normal doubt dissection Differential Diagnosis Differential Diagnoses: The differential diagnosis associated with the presentation includes atypical chest pain, anxiety, low prob VTE Admission/Observation Consideration of admission/observation: Escalation of care including admission/observation considered if repeat trop negative he can be DC home signed out to GENARO Earl for further workup Lab Data [facility] Lab Attestation statement: I reviewed the patient's lab results. 11/07/24 22:06 11/07/24 22:06 Labs: Lab Results 11/07/24 11/07/24 11/08/24 Range/Units 22:06 22:32 00:10 WBC 11.1 H (4.8-10.8) X10*3/uL RBC 5.10 (4.60-5.80) X10*6/uL Hgb 13.4 L (14.0-18.0) g/dl Hct 39.9 L (42.0-52.0) % MCV 78.2 L (80.0-98.0) fL MCH 26.3 L (27.0-33.0) pg MCHC 33.6 (31.0-36.0) g/dl RDW 13.2 (11.0-16.0) % Plt Count 287 D (160-400) X10*3/uL MPV 10.5 (9.4-12.4) fL Immature Gran % (Auto) 0.4 (0.0-0.4) % Neut % (Auto) 73.5 H (45-73) % Lymph % (Auto) 16.9 L (20-40) % [place] % (Auto) 7.1 (2-11) % Eos % (Auto) 1.8 (0-4) % Baso % (Auto) 0.3 (0-2) % Lymph # (Auto) 1.9 (1.2-4.9) X10*3/uL [place] # (Auto) 0.8 (0.1-1.2) X10*3/uL Eos # (Auto) 0.2 (0.0-0.4) X10*3/uL Baso # (Auto) 0.0 (0.0-0.2) X10*3/uL Abs Immat Gran (auto) 0.04 H (0.00-0.03) X10*3/uL Absolute Neuts (auto) 8.2 (2.0-8.3) x10*3/uL Absolute Nucleated RBC 0.000 (0.0-0.012) X10*3/uL Nucleated RBC % (auto) 0.0 (0.0-0.2) /100WBC D-Dimer High Sensitivty < 150 NG/ML Sodium 138 (135-145) mmol/L Potassium 3.8 (3.3-5.1) mmol/L Chloride 105 (96-108) mmol/L Carbon Dioxide 24 (22-29) mmol/L Anion Gap 13 (12-20) BUN 13 (9-16) mg/dL Creatinine 0.87 (0.5-1.4) mg/dL Estim Creat Clear Calc 190.4 Estimated GFR > 60 Random Glucose 108 (60-115) mg/dL Calcium 10.3 H (8.4-10.2) mg/dL Total Bilirubin 0.6 (0.0-1.0) mg/dL AST 31 (5-37) U/L ALT 41 H (0-40) U/L Alkaline Phosphatase 76 (39-117) U/L Troponin I High Sens 11.9 18.6 D (<3.5-35.0) ng/L Total Protein 8.3 H (6.5-8.0) g/dL Albumin 4.5 (3.5-5.0) g/dL 11/08/24 Range/Units 03:02 WBC (4.8-10.8) X10*3/uL RBC (4.60-5.80) X10*6/uL Hgb (14.0-18.0) g/dl Hct (42.0-52.0) % MCV (80.0-98.0) fL MCH (27.0-33.0) pg MCHC (31.0-36.0) g/dl RDW (11.0-16.0) % Plt Count (160-400) X10*3/uL MPV (9.4-12.4) fL Immature Gran % (Auto) (0.0-0.4) % Neut % (Auto) (45-73) % Lymph % (Auto) (20-40) % [place] % (Auto) (2-11) % Eos % (Auto) (0-4) % Baso % (Auto) (0-2) % Lymph # (Auto) (1.2-4.9) X10*3/uL [place] # (Auto) (0.1-1.2) X10*3/uL Eos # (Auto) (0.0-0.4) X10*3/uL Baso # (Auto) (0.0-0.2) X10*3/uL Abs Immat Gran (auto) (0.00-0.03) X10*3/uL Absolute Neuts (auto) (2.0-8.3) x10*3/uL Absolute Nucleated RBC (0.0-0.012) X10*3/uL Nucleated RBC % (auto) (0.0-0.2) /100WBC D-Dimer High Sensitivty NG/ML Sodium (135-145) mmol/L Potassium (3.3-5.1) mmol/L Chloride (96-108) mmol/L Carbon Dioxide (22-29) mmol/L Anion Gap (12-20) BUN (9-16) mg/dL Creatinine (0.5-1.4) mg/dL Estim Creat Clear Calc Estimated GFR Random Glucose (60-115) mg/dL Calcium (8.4-10.2) mg/dL Total Bilirubin (0.0-1.0) mg/dL AST (5-37) U/L ALT (0-40) U/L Alkaline Phosphatase (39-117) U/L Troponin I High Sens 21.3 (<3.5-35.0) ng/L Total Protein (6.5-8.0) g/dL Albumin (3.5-5.0) g/dL Independent Interpretation I performed an independent interpretation of an: EKG and Plain X-Ray (clinically no pneumonia) Interpretation: Rate: 109 Rhythm: sinus tach Post: normal Normal P waves. Normal SEBASTIEN. Normal QRS complex. ST T wave : normal no HUNTER qTC: 422 prior studies: no acute ischemia The study has been interpreted contemporaneously by me. . Radiology Impression Discussion of test interpretation with radiology: I have reviewed the radiologist's reading. External Record Review External record reviewed: Outpatient record Discharge Plan Discharge Clinical Impression: Atypical chest pain Patient Disposition: Home, Self-Care Instructions: Chest Pain (ED) Additional Instructions: ddimer for blood clots negative tests reassuring on repeat EKG no acute findings chest xray no obvious pneumonia, however could be an early developing pneumonia per the radiology report. The recommendation is for you to have a repeat chest x-ray, you can return to the emergency department in 1 week. return for any worsening symptoms or concerns rest and stay hydrated. Stand Alone Forms: Work/School Release Print Language: [place]
[2024-11-07 23:22] LABS: D Dimer High Sensitivity < 150 NG/ML
[2024-11-08 00:37] LABS: Troponin-I High Sensitivity 18.6 ng/L (<3.5-35.0)
[2024-11-08 00:49] VITALS: BP 119/79; PULSE 90; RESP 24; TEMP 36.7; O2SAT 96
[2024-11-08 03:07] VITALS: BP 115/66; PULSE 97; RESP 13; TEMP 36.5; O2SAT 95
[2024-11-08 03:28] LABS: Troponin-I High Sensitivity 21.3 ng/L (<3.5-35.0)
[2024-11-08 04:15] VITALS: BP 109/61; PULSE 94; RESP 20; TEMP 36.2; O2SAT 98
--- NOTE | 2024-11-08 04:30 | PC.NURSE ---
Pt has been sleeping since this RN arrival.
[2024-11-08 04:49] VITALS: BP 109/61; PULSE 94; RESP 20; TEMP 36.2; O2SAT 98
== END 2024-11-08 04:50 | disposition home or self-care (01) ==
PROVIDERS: Emergency Provider Emergency Medicine
DX: R07.89 Other chest pain (principal); R06.00 Dyspnea, unspecified; F41.9 Anxiety disorder, unspecified; K21.9 Gastro-esophageal reflux disease without esophagitis
CPT/HCPCS: 36415; 71045; 71046; 80053; 84484; 85025; 85379; 93005; 99283; 99284

== ENCOUNTER → 2024-11-07 21:57 | Outpatient (BNV) | payer OTHER, SELFPAY | PROVIDERS: Emergency Provider Emergency Medicine; Visit Provider Internal Medicine | DX: R00.0 Tachycardia, unspecified (principal) | CPT/HCPCS: 93010 ==

== ENCOUNTER → 2024-11-07 22:23 | Outpatient (BNV) | payer OTHER, SELFPAY | PROVIDERS: Emergency Provider Emergency Medicine; Visit Provider Radiology Diagnostic Radiology | DX: R91.8 Other nonspecific abnormal finding of lung field (principal); R07.9 Chest pain, unspecified | CPT/HCPCS: 71045; 71046 ==

== ENCOUNTER 2024-11-20 08:15 | Outpatient (REF) | payer OTHER, SELFPAY ==
--- NOTE | ~2024-11-20 | XR_ITS ---
EXAMINATION: XR CHEST CLINICAL INFORMATION: R05.9 - Cough, unspecified COMPARISON: November 07, 2024. TECHNIQUE: 2 views of the chest were obtained. FINDINGS: No consolidation, pleural effusion or pneumothorax. No hyperinflation. Cardiomediastinal silhouette size is normal. Mild multilevel thoracic and upper lumbar spondylosis. Patient's large body habitus/obesity. XR/XR chest 2V IMPRESSION: No acute airspace disease. Electronically signed by: Issa Zimmer MD 11/20/2024 09:27 AM EDT
--- OUTSIDE RECORDS SUMMARY | 2024-11-20 10:19 | XMS_ITS | Encounter Summary ---
Author Organization [employer] Address [address] [place] [address] 7 [place] [address] Care Team Providers Care Cook Room Supervisor Name Role Phone Liss Peterson OD Primary Care Provider [phone] Encounter Details Date Type Department Care Team (Latest Contact Info) Description 11/20/2018 Abstract [facility] CONVERSIONS Dental, Provider, DDS Social History [...] on filedocumented in this encounter Care Teams Cook Room Supervisor Relationship Specialty Start Date End Date Liss Peterson OD [address] [place] [id number] PCP - General Optometry 02/28/18 07/09/23 documented as of this encounter
--- OUTSIDE RECORDS SUMMARY | 2024-11-20 10:19 | XMS_ITS | Clinical Summary ---
Author Organization [employer] Address [address] [place] [address] [address]t [place] [address] Care Team Providers Care House Worker General Name Role Phone Unavailable Primary Care Provider [...] 1998 HIV Screening 1998 SDOH Screening 1998 Disability Screening 1998 Alcohol/Substance Use Screening 2010 Family [...] Screening 01/17/2025 01/18/2024 Dental X-Ray: Bitewings 01/18/2025 01/18/20, 12/21/2021, 12/07/2021, Additional history exists Dental X-Ray: [...] patient's age to complete this topic Meningococcal B Vaccine Aged Out No l onger eligible based on patient's age to complete [...] Most Recently Relevant to Health Maintenance Insurance [facility] [place]
--- OUTSIDE RECORDS SUMMARY | 2024-11-20 10:19 | XMS_ITS | Encounter Summary ---
Author Organization [employer] Address [address] [place] [address] 7 [place] [address] Care Team Providers Care Hotel Reservationist Name Role Phone Liss Peterson OD Primary Care Provider [phone] Encounter Details Date Type Department Care Team (Latest Contact Info) Description 12/21/2021 Abstract [facility] CONVERSIONS Dental, Provider, DDS Social History [...] on filedocumented in this encounter Care Teams Hotel Reservationist Relationship Specialty Start Date End Date Liss Peterson OD [address] [place] [phone] PCP - General Optometry 02/28/18 07/09/23 documented as of this encounter
== END 2024-11-20 08:16 | disposition home or self-care (01) ==
LOC: HO.HMGCX 08:15
PROVIDERS: Visit Provider Physician Assistant
DX: J22 Unspecified acute lower respiratory infection (principal); R05.9 Cough, unspecified
CPT/HCPCS: 71046

== ENCOUNTER 2024-11-20 08:15 | Outpatient (AMB) | payer OTHER, SELFPAY ==
--- NOTE | 2024-11-20 08:41 | AM.OFFWIN_ITS ---
Intake Vital Signs 11/20/24 08:42 Weight 359 lb BP 104/70 Blood Pressure Location Lt brachial Position Sitting Pulse 76 Pulse Source Pulse Oximeter Temp 97.9 F Temp Source Oral Pulse Oximetry (%) 98 Oxygen Delivery Method Room Air Intake Visit Reasons: EP SOB Intake Note: Patient here for SOB that has been present for about 1 week. Patient Tobacco Use Status: Never used Tobacco Allergies No Known Allergies [No Known Allergies*] Allergy (Verified 11/20/24 08:42) Do you need a note to return to daycare/school/sports/work: Yes HPI HPI Comments History of Present Illness Details History - The patient is a 24-year-old male pres enting with shortness of breath and ear pain. - Symptoms began on November 07, at which ti me a chest X-ray done in the [facility] suggested possible developing pneumonia. EKG was normal, troponins x2 neg and other labs WNL. - He reports shortness of breath but den ies wheezing, smoking, vaping, asthma, COPD, fever, or sinus pain. - He has not taken any zdjq-feh-wjduohz medications. - He reports bilateral ear pain starting today. - Has not tried any OTC meds. Physical Exam General: Cooperative, healthy appearing, comfortable and no acute distress Orientation/consciousness: Patient oriented x3 Limitations: No limitations Head: Normal to inspection Ears: Hearing grossly normal bilaterally, external ears normal, EAC's with erythema and TM's normal bilaterally Nose: Normal external nose present, Normal nares present and No nasal discharge present Face and sinus: Normal facial exam and Yes sinuses nontender Mouth: Normal oral and palatal mucosa present and moist mucous membranes Throat: Yes tonsils normal, Yes uvula midline. Posterior oropharynx erythema Eyes: Appearance normal, both eyes and all related structures Neck: Normal visual inspection Respiratory: Clear to auscultation bilaterally. Normal respiratory effort, able to speak in complete sentences, Actively coughing, no respiratory distress, not tachypneic, no tripod positioning and no use of accessory muscles Cardiovascular: Regular rate and rhythm. Normal S1 and S2 Skin: No rashes or lesions noted Neuro: Patient oriented x3 Extremities: Normal to inspection and Yes no clubbing, cyanosis or edema PFSH Medical History GERD (gastroesophageal reflux disease) Anger Depression Surgical History No pertinent past surgical history Family History Father No problems noted. Mother No problems noted. 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 The patient with shortness of breath and possible developing pneumonia per ER chest X-ray on 11/07 will undergo a repeat chest X-ray today. I have sent an inhaler and spacer to the pharmacy. Educated pt on use of the inhaler. Aesu-rda-jqhvzja Mucinex is advised, along with rest and hydration. I will call with the chest X-ray results later today. The patient will receive a work note at the front office agent as requested. Further management will depend on the results of today's imaging. Patient was informed and verbally consented to the use of an ambient scribe for clinic note documentation during this visit Orders: Orders XR chest 2V Today R05.9 - Cough, unspecified Medications: New inhalational spacing device (BreatheRite MDI Spacer) As directed 1 ea 0RF albuterol sulfate 90 mcg/actuation 2 puffs inhalation Q6H PRN 8.5 grams 0RF shortness of breath or wheezing or cough Coding Level of Care Code New Pt Level 4 (72067) Diagnoses Lower respiratory infection (e.g., bronchitis, pneumonia, pneumonitis, pulmonitis) J22
[2024-11-20 08:42] VITALS: BP 104/70; PULSE 76; TEMP 36.6; O2SAT 98
== END 2024-11-20 09:04 | disposition home or self-care (01) ==
PROVIDERS: Visit Provider Physician Assistant
DX: J22 Unspecified acute lower respiratory infection (principal)

== ENCOUNTER → 2024-11-20 09:08 | Outpatient (BNV) | payer OTHER, SELFPAY | PROVIDERS: Visit Provider Radiology Diagnostic Radiology | DX: M47.814 Spondylosis without myelopathy or radiculopathy, thoracic region (principal) | CPT/HCPCS: 71046 ==

== ENCOUNTER 2025-03-12 00:45 | Emergency (ER) | payer OTHER, SELFPAY ==
[2025-03-12 01:04] VITALS: BP 141/80; PULSE 76; RESP 16; TEMP 36.6; O2SAT 98; BMI 44.4
--- NOTE | 2025-03-12 01:31 | ED_ITS ---
HPI - Dental/Oral General Chief complaint: Dental/Oral Stated complaint: ear pain Time Seen by Provider: 03/12/25 01:13 History of Present Illness HPI Narrative: Patient is 24 years old presented today with having dental pain for the last 2 days. Patient has a dental apartment [place] Complaining of pain. No fever no chills no systemic complaints. No change in voice no difficulty breathing. Related Data Previous Rx's ?Medication ?Instructions ?Recorded albuterol sulfate 90 mcg/actuation 2 puff inhalation Q 6H PRN 11/20/24 aerosol inhaler shortness of breath or wheez ing or cough #8.5 grams inhalational spacing device #1 ea 11/20/24 (BreatheRite MDI Spacer) ibuprofen 400 mg tablet 400 mg PO Q6H PRN pain #20 t abs 03/12/25 penicillin V potassium 500 mg 500 mg PO TID 5 days #15 tabs 03/12/25 tablet Allergies Allergy/AdvReac Type Severity Reaction Status Date / Time No Known Allergies (No Known Allergy Verified 03/12/25 01:07 Allergies*) Review of Systems Review of Systems: Positive dental pain Yes all other systems are reviewed and are negative [facility] Past Medical History Attestation statement: The following information was validated with the patient. Medical History GERD (gastroesophageal reflux disease) Anger Depression Surgical History No pertinent past surgical history Family History Family History Father No problems noted. Mother No problems noted. 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 Oriented X3. No acute distress. Eyes: Pupils equal, round and reactive to light. ENT: Pharynx normal. Mild pain on palpation of the upper jaw on the left side. There is no gross fluctuance noted. There is no real dental cavity noted. Posterior pharynx is normal. TMs intact. Neck: Normal inspection. Neck supple. No lymph nodes noted. No crepitus CVS: Normal heart rate and rhythm. Pulses normal. Normal S1 and S2 Respiratory: No respiratory distress. Breath sounds normal. No Wheezing. No rales Abdomen: Soft and nontender. No rigidity. No distention. good BS x4 Skin: Skin warm and dry. Normal skin color. Normal skin turgor. Extremities: No lower extremity edema. Neurovascular intact to all extremities. No Lacerations. No Rash Neuro: Oriented X 3. No motor deficit. No sensory deficit. Moving all extermities. No slurred speech Vital Signs: Vital Signs: Last Vital Signs Temp 97.8 F 03/12/25 01:04 Pulse 76 03/12/25 01:04 Resp 16 03/12/25 01:04 BP 141/80 H 03/12/25 01:04 Pulse Ox 98 03/12/25 01:04 O2 Del Method Room Air 03/12/25 01:04 BMI result Body Mass Index 44.4 Medical Decision Making Medical Decision Making [facility] Narrative: Well-appearing no acute distress. TMs are intact bilaterally there is no signs of ear infection. Patient has mild pain to the left upper jaw. Will give antibiotics. We will also go ahead and give pain medication. Patient to be discharged home Differential Diagnosis Differential Diagnoses: The differential diagnosis associated with the presentation includes Dental abscess otitis media Admission/Observation Consideration of admission/observation: Escalation of care including admission/observation considered Independent Historian Clinical information obtained from an independent historian. History obtained from or confirmed by: Parent Prescription Management I considered prescription management with: Pain Medication and Antibiotic Discharge Plan Discharge Clinical Impression: Pain, dental Patient Disposition: Home, Self-Care Instructions: Toothache (ED) Prescriptions: New ibuprofen 400 mg tablet 400 mg PO Q6H PRN (Reason: pain) Qty: 20 0RF penicillin V potassium 500 mg tablet 500 mg PO TID 5 Days Qty: 15 0RF No Action albuterol sulfate 90 mcg/actuation HFA aerosol inhaler 2 puff inhalation Q6H PRN (Reason: shortness of breath or wheezing or cough) Qty: 8.5 0RF (DME) BreatheRite MDI Spacer Spacer See Rx Instructions .MEDSUPPLY Qty: 1 0RF Rx Instructions: As directed Referrals: Physician,Unknown J [Primary Care Provider, Medical] Referral Note: Please follow-up with your dentist in a.m. Print Language: Syriac
--- OUTSIDE RECORDS SUMMARY | 2025-03-12 01:35 | XMS_ITS | Encounter Summary ---
Author Organization [facility] Address [address] [facility] [address] [place] [phone] Phone Care Team Providers Care Hunter Trapper Name Role Phone Pcp, Unknown Primary Care Provider Unavailabl e Pcp, Unknown Primary Care Provider Unavailabl e Encounter Details Date Type Department Care Team (Late st Contact Info) Description 06/01/2022 Procedure Pass [facility], Ct Scan - [address] [address] Social History Tobacco Use Types Packs/Day Years Used Date Smoking Tobacco: Never Assessed Sex and Gender Information Value Date Recorded Sex Assigned at Not on file Legal Sex Male 6:33 PM EST Gender Identity Not on file Sexual Orientation Not on file documented as of this encounter Functional Status * Calculated C-SSRS Risk Score (Lifetime/Recent) Answer Date of Assessment Author No Risk Indicated 06/01/2022 6:41 PM Anel Wahl RN * [place] Suicide Severity Rating Scale (Screener/Recent Self-Report) Question Answer Date of Assessment Author 1. Wish to be (Past 1 Month) No 06/01/2022 6:41 PM Anel Wahl RN 2. Non-Specific Active Suici nancie Thoughts (Past 1 Month) No 06/01/2022 6:41 PM Altagracia Wahl RN 6. Suicidal Behavior (Lifetime) No 6:41 PM Anel Wahl RN documented as of this encounter Plan of Treatment Not on file documented as of this encounter Visit Diagnoses Not on filedocumented in this encounter Care Teams Hunter Trapper Relationship Specialty Start Date End Date Pcp, Unknown PCP - General 06/01/22 09/19/23 Pcp, Unknown PCP - General 09/20/23 documented as of this encounter Additional Source Comments The information contained in this document represents components of the legal health record. It is not the complete legal health record.[facility]
--- OUTSIDE RECORDS SUMMARY | 2025-03-12 01:35 | XMS_ITS | Encounter Summary ---
Author Organization [employer] Address [address] [place] [address] 7 [place] [address] Care Team Providers Care Wire Temperer Name Role Phone Liss Peterson OD Primary Care Provider [phone] Encounter Details Date Type Department Care Team (Latest Contact Info) Description 11/20/2018 Abstract [facility] CONVERSIONS Dental, Provider, DDS Social History Tobacco [...] on filedocumented in this encounter Care Teams Wire Temperer Relationship Specialty Start Date End Date Liss Peterson OD [address] [place] [phone] PCP - General Optometry 02/28/18 07/09/23 documented as of this encounter
--- OUTSIDE RECORDS SUMMARY | 2025-03-12 01:35 | XMS_ITS | Clinical Summary ---
Author Organization [employer] Address [address] [place] [address] 7t [place] [address] Care Team Providers Care Parasitology Teacher Name Role Phone Unavailable Primary Care Provider [...] Date Last Done Comments Depression Screening 1998 SDOH Screening 1998 Disability Screening 1998 Alcohol/Substance Use Screening 2010 Family Planning (PISQ) 2013 HPV Vaccines (1 - Male 3-dose series) 2013 Hepatitis C Screening 2016 DTaP/Tdap/Td Vaccines (1 - Tdap) 2017 Hepatitis B Vaccines (1 of 3 - 19+ 3-dose series) 2017 Dental Oral Exam 06/23/2022 12/21/2021, , 03/27/2018 Dental Prophylaxis 06/23/2022 12/21/2021, 1 07/29/2018, 11/20/2018, Additional history exists Tobacco Screening 01/17/2025 01/18/2024 Dental X-Ray: Bitewings 01/18/2025 01/18/20 24, 12/21/2021, 12/07/2021, Additional history exists COVID-19 Vaccine ( season) 2025 05/05/2023, 11/29/2020, 10/30/2020 Influenza Vaccine (#1) 2025 , 09/09/2022, 06/19/2020, Additional history exists Dental X-Ray: Full Mouth 07/26/2026 07/25/2023, 03/04 Zoster Vaccines (1 of 2) 2048 RSV Patients and Patients Aged 60 years or older (1 - 1-dose 75+ series) 2073 HIV Screening Completed 06/02/2022 HIB Vaccines Aged Out No longer eligi [...] Years) and At-Risk Patients (6 to 49) Years Aged Out No longer eligible based on [...] Most Recently Relevant to Health Maintenance [place] [address] [place] [address] [facility] [place]
--- OUTSIDE RECORDS SUMMARY | 2025-03-12 01:35 | XMS_ITS | Encounter Summary ---
Author Organization [employer] Address [address] [place] [address] 7 [place] [address] Care Team Providers Care Mortgage Loan Coordinator Name Role Phone Liss Peterson OD Primary Care Provider [phone] Encounter Details Date Type Department Care Team (Latest Contact Info) Description 12/21/2021 Abstract [facility] CONVERSIONS Dental, Provider, DDS Social History Tobacco [...] on filedocumented in this encounter Care Teams Mortgage Loan Coordinator Relationship Specialty Start Date End Date Liss Peterson OD [address] [place] [phone] PCP - General Optometry 02/28/18 07/09/23 documented as of this encounter
--- OUTSIDE RECORDS SUMMARY | 2025-03-12 01:35 | XMS_ITS | Clinical Summary ---
Author Organization [facility] Address [address] [address] Phone Care Team Providers Care Interactive Media Project Manager Name Role Phone Pcp, Unknown Primary Care Provider Unavailabl e Allergies Active Allergy Reactions Criticality Noted Date Comments Penicillins 09/19/2023 Medications methylPREDNISol one (MEDROL DOSEPACK) 4 mg tablet follow package directions 21 tablet Active Social History Tobacco Use Types Packs/Day Years Used Date Smoking Tobacco: Never Assessed Education Answer Date Recorded Are you interested in more education? Not on jaciel e 10/29/2022 Are you concerned about learning? Not on file 10/29/2022 No 10/29/2022 No 10/29/2022 Digital Access Answer Date Recorded No 11/29/2022 No 11/29/2022 Reliable internet access at home? Not on file 11/29/2022 Device with a working camera? Not on file Intimate Partner Violence Answer Date R ecorded Are you denied basic needs s uch as food, clothing, or medical care? No 09/20/2023 In the past 12 months have y ou been in a relationship with a person who hurts, threatens, or tries to control you? No 09/20/2023 Are you denied basic needs s uch as food, clothing, or medical care? No 09/20/2023 In the past 12 months have y ou been in a relationship with a person who hurts, threatens, or tries to control you? No 09/20/2023 Sex and Gender Information Value Date Recorded Sex Assigned at Not on file Legal Sex Male 6:33 PM EST Gender Identity Not on file Sexual Orientation Not on file Last Filed Vital Signs Vital Sign Reading Time Taken Comments Blood Pressure 148/87 09/20/2023 8:46 PM EDT Pulse 88 09/20/2023 8:44 PM EDT Temperature 36.6 C (97.9 F) 09/20/2023 8:44 PM EDT Respiratory Rate 16 09/20/2023 8:44 PM EDT Oxygen Saturation 99% 09/20/2023 8:44 PM EDT Inhaled Oxygen Concentration - - Weight 138.3 kg (305 lb) 09/20/2023 8:44 PM EDT Height 190.5 cm (6' 3 ) 09/20/2023 8:44 PM EDT Body Mass Index 38.12 09/20/2023 8:44 PM EDT Plan of Treatment Not on file Medical Devices Not on file Insurance [employer] TPA TPA CIGNA TPA CIGNA TPA [facility] Address: [facility] [id number] [place] [phone] Care Teams Interactive Media Project Manager Relationship Specialty Start Date End Date Pcp, Unknown PCP - General 09/20/23 Additional Source Comments The information contained in this document represents components of the legal health record. It is not the complete legal health record.[facility]
[2025-03-12 01:44] VITALS: BP 129/83; PULSE 73; RESP 18; TEMP 36.7; O2SAT 99
[2025-03-12] MEDS: HYDROcodone Bit/Acetam 5/325 TABLET 1 TAB PO (01:48)
[2025-03-12 01:53] VITALS: BP 129/83; PULSE 73; RESP 18; TEMP 36.7; O2SAT 99
== END 2025-03-12 01:54 | disposition home or self-care (01) ==
PROVIDERS: Emergency Provider Emergency Medicine Emergency Medical Services
DX: K08.89 Other specified disorders of teeth and supporting structures (principal)
CPT/HCPCS: 99283; 99284